=== PATIENT | female | born 1955 | race Caucasian/White ===

== ENCOUNTER 2016-05-23 06:23 | Day surgery (SDC) | payer BC ==
[2016-05-16 14:23] VITALS: BMI 27.4
[~2016-05-23 06:23] MED LIST: DEXAMETHASONE SOD PHOSPHATE 10 MG/ML 1 ML VIAL IV ONE; HEPARIN SODIUM,PORCINE 5,000 UNIT/ML 1 ML VIAL SQ ONE; MIDAZOLAM 2 MG/2 ML VIAL IV PRN; ONDANSETRON 4 MG/2 ML VIAL IVP ONE; Pre Op ABX Message 1 EACH MISC MISCELLANE ONE; SCOPOLAMINE 1.5MG/72HR PATCH TRANSDERM ONE
[2016-05-23] MEDS: LACTATED RINGERS 1,000 ML IV SCH (06:56)
[2016-05-23] MEDS ORDERED: LIDOCAINE 1% 20 ML VIAL (10MG/ML) FOR IV START INTRADERMA ONE (06:57)
[2016-05-23 07:17] LABS: Anion Gap 11 mmol/L; Blood Urea Nitrogen 8 mg/dL (7-17); Calcium 9.1 mg/dL (8.4-10.2); Carbon Dioxide 27 mmol/L (22-30); Chloride 107 mmol/L (98-107); Glucose 84 mg/dL (74-99); Non-African American GFR(MDRD) >60 (>60 ml/min/1.73 sqM); Potassium 3.9 mmol/L (3.5-5.1); Sodium 145 mmol/L (137-145)
--- NOTE | 2016-05-23 07:59 | P.GSHP ---
History of Present Illness H&P Date: 05/23/16 Chief Complaint: Right thyroid cancer This is a 61-year-old female referred from Dr. Payne and Camila Braun DIRECT CUSTOMER SERVICE REPRESENTATIVE. Patient was worked up for a right thyroid nodule. 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 Patient is in today for thyroidectomy. Patient with a risk of injury to the recurrent laryngeal nerve with local hoarseness as well as parathyroid gland injury. - Constitutional Constitutional: Reports as per HPI Past Medical History Past Medical History: Hypertension, Thyroid Disorder History of Any Multi-Drug Resistant Organisms: None Reported Past Surgical History: Tubal Ligation Past Anesthesia/Blood Transfusion Reactions: No Reported Reaction Past Psychological History: No Psychological Hx Reported Smoking Status: Current every day smoker Past Alcohol Use History: None Reported Additional Past Alcohol Use History / Comment(s): SMOKES < 1 PPD OFF AND ON FOR PAST 20 YRS-. TRYING TO QUIT Past Drug Use History: None Reported - Past Family History Mother Family Medical History: No Reported History Medications and Allergies Home Medications Medication Instructions Recorded Confirmed Type Bisoprolol-Hctz 5-6.25 mg [Ziac 1 each PO DAILY 02/07/14 05/23/16 History 5-6.25 MG] Aspirin [Adult Low Dose Aspirin EC] 81 mg PO DAILY 05/16/16 05/16/16 History Levothyroxine Sodium [Synthroid] 75 mcg PO DAILY 05/16/16 05/23/16 History Allergies Allergy/AdvReac Type Severity Reaction Status Date / Time Penicillins Allergy Rash/Hives Verified 05/16/16 13:54 Surgical - Exam Vital Signs Temp Pulse Resp BP Pulse Ox 99.2 F 56 L 16 136/89 97 05/23/16 06:53 05/23/16 06:53 05/23/16 06:53 05/23/16 06:53 05/23/16 06:53 - General well developed, no distress - Eyes PERRL - ENT normal pinna - Neck Neck is soft. Thyroid gland is mildly prominent. There is a subtle fullness on the Right side. no masses - Respiratory normal expansion - Cardiovascular Rhythm: regular - Abdomen Abdomen: soft, non tender Results - Labs 05/23/16 06:59 Diabetes panel 05/23/16 Range/Units 06:59 Sodium 145 (137-145) mmol/L Potassium 3.9 (3.5-5.1) mmol/L Chloride 107 (98-107) mmol/L Carbon Dioxide 27 (22-30) mmol/L BUN 8 (7-17) mg/dL Creatinine 0.75 (0.52-1.04) mg/dL Glucose 84 (74-99) mg/dL Calcium 9.1 (8.4-10.2) mg/dL Calcium panel 05/23/16 Range/Units 06:59 Calcium 9.1 (8.4-10.2) mg/dL Pituitary panel 05/23/16 Range/Units 06:59 Sodium 145 (137-145) mmol/L Potassium 3.9 (3.5-5.1) mmol/L Chloride 107 (98-107) mmol/L Carbon Dioxide 27 (22-30) mmol/L BUN 8 (7-17) mg/dL Creatinine 0.75 (0.52-1.04) mg/dL Glucose 84 (74-99) mg/dL Calcium 9.1 (8.4-10.2) mg/dL Adrenal panel 05/23/16 Range/Units 06:59 Sodium 145 (137-145) mmol/L Potassium 3.9 (3.5-5.1) mmol/L Chloride 107 (98-107) mmol/L Carbon Dioxide 27 (22-30) mmol/L BUN 8 (7-17) mg/dL Creatinine 0.75 (0.52-1.04) mg/dL Glucose 84 (74-99) mg/dL Calcium 9.1 (8.4-10.2) mg/dL Assessment and Plan Plan: Right her. Tumor. Patient will undergo thyroidectomy today.
[2016-05-23] MEDS ORDERED: LIDOCAINE 1% INJ 10MG/ML (20 ML MDV) ONE (08:06)
[2016-05-23] MEDS ORDERED: MIDAZOLAM 2 MG/2 ML VIAL ONE (08:06)
[2016-05-23] MEDS ORDERED: GLYCOPYRROLATE 0.2 MG/ML 2 ML VIAL ONE (08:06)
[2016-05-23] MEDS ORDERED: PROPOFOL 10 MG/ML 20 ML VIAL IV ONE (08:06)
[2016-05-23] MEDS ORDERED: SUCCINYLCHOLINE CHLORIDE 100 MG/5 ML SYR IV ONE (08:06)
[2016-05-23] MEDS ORDERED: fentaNYL (PF) 50 MCG/ML 2 ML AMP ONE (08:06)
[2016-05-23] MEDS ORDERED: ePHEDrine 50 MG/ML 1 ML AMP ONE (08:06)
[2016-05-23] MEDS ORDERED: SODIUM CHLORIDE 0.9% 50 ML with ceFAZolin 2,000 MG IV ONE ×2 (08:19)
[2016-05-23] MEDS ORDERED: LACTATED RINGERS 1,000 ML IV ONE ×2 (10:24→10:46)
[2016-05-23] MEDS ORDERED: BUPIVACAIN-EPI 0.25%-1:200,000 30 ML VIAL SQ ONE (10:30)
[2016-05-23] MEDS ORDERED: NALOXONE 0.4 MG/ML 1 ML VIAL IV PRN (10:46)
[2016-05-23] MEDS ORDERED: HYDROcodone/APAP 5-325MG 1 EACH TAB PO PRN (10:46)
--- NOTE | 2016-05-23 10:47 | P.OP ---
Date of Procedure: 05/23/16 Preoperative Diagnosis: Right lower lobe Hurthle cell tumor Postoperative Diagnosis: Right lower lobe Hurthle cell tumor Procedure(s) Performed: Total thyroidectomy Anesthesia: PAULETTE Surgeon: Mick Rivera Estimated Blood Loss (ml): 20 Pathology: other (Thyroid) Condition: stable Disposition: PACU Description of Procedure: The patient's placed on the operating table in the supine position. She received general anesthesia. Her neck was extended and position. The neck was prepped and draped in usual sterile fashion. Standard Ruben incision was made in the midline of the neck. The platysma was divided using cautery. And then the strap muscles were divided in the midline. Gelpi retractors placed a wound. And then using gentle finger dissection the right thyroid gland was exposed. Retractors were placed in the appropriate plane and then the thyroid gland was visualized. There was a nodule in the lower right thyroid. At this point the inferior thyroid vessels were dissected using a right angle grasper. The right angle clamp was used to pass 3-0 Vicryl sutures around the inferior thyroid vessels. The vessel was then ligated. It was divided with the Harmonic scissors. Next the gland was rotated medially. Several small adhesive bands were divided using Harmonic scissors. The superior thyroid vessels and dissected with a right angle clamp. A 2-0 suture was placed around the superior thyroid vessels. The suture was then ligated and then another 2-0 suture was used to ligate the superior thyroid vessels. Using the Harmonic scissors the vessels were divided. And then the gland was rotated medially. The middle thyroid vessels were divided with 3-0 silk ties. Meticulous dissection was performed. The recurrent laryngeal nerve was visualized and preserved. The gland was rotated medially. There was significant inflammatory changes. The gland appeared to be adhesed to the thyroid. Using a combination of blunt and sharp dissection the and the Harmonic scissors the thyroid gland was taken off of the trachea. Next the left thyroid gland was exposed. The left thyroid gland appeared to have inflammatory changes in the lower portion of the gland. The gland was quite stuck to the surrounding tissues. The gland was rotated medially. And then the inferior thyroid vessels were ligated with 3-0 silk ties. The superior thyroid vessels were ligated between 2-0 silk ties. The recurrent laryngeal nerve was seen and preserved. The middle thyroid vessels were divided between 3-0 silk ties. Using the Harmonic scissors the thyroid gland was then removed from the trachea. The thyroid was then sent to pathology. The right upper lobe was marked with a silk suture. The wounds rectal bleeding. There was no bleeding seen. The wound was irrigated. There is no bleeding seen. The strap muscles were reapproximated in midline using 3-0 Vicryl suture and then the platysma was reapproximated using 3-0 Vicryl suture. The skin was closed with interrupted 3-0 Monocryl suture. Dermabond was applied. Patient was sent to recovery in stable condition.
[2016-05-23] MEDS: HYDROmorphone 1 MG/ML 1 ML SYRINGE IVP PRN ×4 (11:02→19:17)
[2016-05-23] MEDS: BISOPROLOL-HCTZ 5-6.25 MG 1 EACH TAB PO SCH (16:13)
--- NOTE | 2016-05-23 17:56 | P.CONS ---
History of Present Illness - Reason for Consult Consult date: 05/23/16 Elective thyroidectomy Requesting physician: Mick Rivera - Chief Complaint Patient was admitted for hurthel cell tumor - History of Present Illness Patient has been seen in the office for what was perceived to be a multinodular thyroid. patient was sent for fine needle aspirate by needle aspirate demonstrated a hurthel cell tumor of the thyroid. Li performed the procedure and resected the thyroid I been asked to see patient in consultation Review of Systems Constitutional: Reports as per HPI Ears, nose, mouth and throat: Reports as per HPI Breasts: Reports as per HPI Cardiovascular: Reports as per HPI Respiratory: Reports as per HPI Gastrointestinal: Reports as per HPI Genitourinary: Reports as per HPI Musculoskeletal: Reports as per HPI Integumentary: Reports as per HPI Neurological: Reports as per HPI Psychiatric: Reports as per HPI Past Medical History Past Medical History: Hypertension, Thyroid Disorder History of Any Multi-Drug Resistant Organisms: None Reported Past Surgical History: Tubal Ligation Past Anesthesia/Blood Transfusion Reactions: No Reported Reaction Past Psychological History: No Psychological Hx Reported Smoking Status: Current some day smoker Past Alcohol Use History: None Reported Additional Past Alcohol Use History / Comment(s): SMOKES < 1 PPD OFF AND ON FOR PAST 20 YRS-. TRYING TO QUIT Past Drug Use History: None Reported - Past Family History Mother Family Medical History: No Reported History Medications and Allergies Home Medications Medication Instructions Recorded Confirmed Type Bisoprolol-Hctz 5-6.25 mg [Ziac 1 each PO DAILY 02/07/14 05/23/16 History 5-6.25 MG] Aspirin [Adult Low Dose Aspirin EC] 81 mg PO DAILY 05/16/16 05/16/16 History Levothyroxine Sodium [Synthroid] 75 mcg PO DAILY 05/16/16 05/23/16 History Allergies Allergy/AdvReac Type Severity Reaction Status Date / Time Penicillins Allergy Rash/Hives Verified 05/16/16 13:54 Physical Exam Osteopathic Statement: *. No significant issues noted on an osteopathic structural exam other than those noted in the History and Physical/Consult. Vitals: Vital Signs Temp Pulse Pulse Pulse Resp BP BP 05/23/16 13:15 67 168/90 05/23/16 13:00 71 163/96 05/23/16 12:45 77 167/91 05/23/16 12:30 59 L 163/89 05/23/16 12:15 60 15 167/86 05/23/16 12:00 60 16 176/79 05/23/16 11:31 68 18 178/96 05/23/16 11:15 60 18 166/65 05/23/16 11:00 91 18 184/98 05/23/16 10:47 60 15 176/79 05/23/16 10:44 98 F 101 H 16 171/90 05/23/16 06:53 99.2 F 56 L 16 136/89 Pulse Ox 05/23/16 13:15 05/23/16 13:00 05/23/16 12:45 05/23/16 12:30 05/23/16 12:15 05/23/16 12:00 95 05/23/16 11:31 96 05/23/16 11:15 95 05/23/16 11:00 97 05/23/16 10:47 95 05/23/16 10:44 97 05/23/16 06:53 97 Intake and Output 05/23/16 05/23/16 05/23/16 06:59 14:59 22:59 Intake Total 100 1300 Output Total 20 Balance 100 1280 Intake: IV 100 1300 Output: Estimated Blood Loss 20 Other: Voiding Method Toilet Weight 77.111 kg Patient Weight 05/24/16 06:59 Weight 77.111 kg General: [Patient awake, alert and oriented times 3. Patient in no acute distress.] HEENT: [PERRL. EOMI. No pharyngeal erythema or exudate.] Neck: Dressing to surgical site of neck Cardiac: [Heart regular in rate and rhythm. No S3. No S4. No clicks, rubs. No murmur.] Lungs: [Clear to auscultation bilaterally.] Abdomen: [No mass. No organomegaly. Bowel sounds presnt and normoactive in all 4 quadrants.] Extremes: [No edema no cyanosis no claudication normal pulses] : [] Musculoskeletal: [No joint erythema, edema or tenderness.] Skin: [No rash.] Neurologic: [No lateralizing deficits. CN II - XII grossly intact.] Lymphatic: [No adenopathy.] Results CBC & Chem 7: 05/23/16 06:59 Assessment and Plan (1) Neoplasm of thyroid Narrative/Plan: Status post resection of thyroid, patient doing well at this time Status: Acute Plan: Continue hypertensive meds We'll start levothyroxine We'll follow closely
[2016-05-23 21:07] VITALS: RESP 16
[2016-05-24 04:02] VITALS: TEMP 98.3
[2016-05-24] MEDS ORDERED: LEVOTHYROXINE 75 MCG TAB PO SCH (06:30)
[2016-05-24 07:15] LABS: Basophils % (A) 0 %; CH 31.1; CHCM 33.1; Eosinophils # (A) 0.1 k/uL (0-0.7); Eosinophils % (A) 1 %; HCT 39.5 % (34.0-46.0); Luc # (Auto) 0.09; Luc % (Auto) 1; Lymphocytes # (A) 1.9 k/uL (1.0-4.8); Lymphocytes % (A) 20 %; MCHC 32.9 g/dL (31.0-37.0); MCV 94.2 fL (80.0-100.0); Mean Platelet Volume 7.8; Monocytes # (A) 0.5 k/uL (0-1.0); Monocytes % (A) 5 %; Neutrophils # (A) 6.7 k/uL (1.3-7.7); Neutrophils % (A) 73 %; RBC 4.19 m/uL (3.80-5.40); WBC 9.2 k/uL (3.8-10.6); WBC (Perox) 10.09
[2016-05-24 07:46] LABS: ALT 28 U/L (9-52); AST 22 U/L (14-36); Alkaline Phosphatase 71 U/L (38-126); Anion Gap 11 mmol/L; Blood Urea Nitrogen 7 mg/dL (7-17); Calcium 8.6 mg/dL (8.4-10.2); Carbon Dioxide 26 mmol/L (22-30); Chloride 101 mmol/L (98-107); Glucose 90 mg/dL (74-99); Non-African American GFR(MDRD) >60 (>60 ml/min/1.73 sqM); Potassium 3.6 mmol/L (3.5-5.1); Sodium 138 mmol/L (137-145); Total Bilirubin 1.1 mg/dL (0.2-1.3); Total Protein 6.9 g/dL (6.3-8.2)
[2016-05-24] MEDS: BISOPROLOL-HCTZ 5-6.25 MG 1 EACH TAB PO SCH (08:17)
[2016-05-24] MEDS: LACTATED RINGERS 1,000 ML IV SCH (08:45)
[2016-05-24] MEDS ORDERED: FAMOTIDINE 20 MG/2 ML VIAL IV SCH (09:00)
[2016-05-24] MEDS ORDERED: ENOXAPARIN 40 MG/0.4 ML SYRINGE SQ SCH (09:00)
[2016-05-24] MEDS ORDERED: ASPIRIN 81 MG CHEW PO SCH (09:00)
[2016-05-24 10:24] VITALS: BP 158/78; PULSE 73
== END 2016-05-24 14:07 | disposition home or self-care (01) ==
LOC: OR 06:23 → 3SUR 10:45 → OR 05-24 14:07
PROVIDERS: ATTEND Surgery
DX: E06.3 Autoimmune thyroiditis (principal); D34 Benign neoplasm of thyroid gland; I10 Essential (primary) hypertension; F17.200 Nicotine dependence, unspecified, uncomplicated; Z79.82 Long term (current) use of aspirin; Z79.899 Other long term (current) drug therapy; Z88.0 Allergy status to penicillin
CPT/HCPCS: 80053; 80048; 82310 ×2; 85025; 88307; 60240; J2250; J1644; J1100; J2405; J2001; J1650; J3010; J1170; J0690; J0330; J2704

== ENCOUNTER → 2020-07-06 | Outpatient (CLI) | payer BC ==
--- NOTE | 2020-07-12 10:31 | MM ---
Reason for exam: screening (asymptomatic). Last mammogram was performed 5 years ago. History: Patient is postmenopausal. Took estrogen for 2 years. Took progesterone for 2 years. Physical Findings: A clinical breast exam by your physician is recommended on an annual basis and results should be correlated with mammographic findings. MG Screening Mammo w CAD Bilateral CC and MLO view(s) were taken. Prior study comparison: July 06, 2015, right breast MG 3d work up w/cad RT. June 29, 2015, bilateral MG screening mammo w CAD. The breast tissue is heterogeneously dense. This may lower the sensitivity of mammography. There is chronic nodularity in the left breast superior and posteriorly. Benign oil cyst calcifications on the left breast. Stable 12-1 o'clock focal asymmetry on the right breast. No significant changes when compared with prior studies. ASSESSMENT: Benign, BI-RAD 2 RECOMMENDATION: Routine screening mammogram of both breasts in 1 year.
== END | disposition home or self-care (01) ==
LOC: RADMAMWWP 10:59
PROVIDERS: ATTEND Nurse Practitioner Women's Health
DX: Z12.31 Encounter for screening mammogram for malignant neoplasm of breast (principal)
CPT/HCPCS: 77067

== ENCOUNTER → 2021-05-08 | Outpatient (CLI) | payer OTHER ==
--- NOTE | 2021-05-08 11:27 | XR ---
EXAMINATION TYPE: XR chest 2V, XR ribs RT DATE OF EXAM: 05/08/2021 COMPARISON: Chest x-ray 8 days ago. HISTORY: Injury with chest and right-sided rib pain. TECHNIQUE: Frontal and lateral views of the chest are obtained. A frontal and oblique images of the right-sided ribs. FINDINGS: There is chronic emphysematous and parenchymal changes bilaterally without suspicious new focal air space opacity, pleural effusion, or pneumothorax seen. The cardiac silhouette size remains within normal limits. The osseous structures are demineralized. Dedicated images of the right-sided ribs show no acute displaced fracture. Overlying soft tissue is u nremarkable. IMPRESSION: 1. No acute cardiopulmonary process. 2. No acute displaced right-sided rib fractures are evident.
== END | disposition home or self-care (01) ==
LOC: RADXRMAIN 10:44
PROVIDERS: ATTEND Emergency Medicine
DX: S29.9XXA Unspecified injury of thorax, initial encounter (principal); R07.81 Pleurodynia; X58.XXXA Exposure to other specified factors, initial encounter
CPT/HCPCS: 71046